=== PATIENT | male | born 1985 | race Two or more races ===

== ENCOUNTER 2018-01-04 09:03 | Emergency (ER) | payer OTHER ==
[2018-01-04 09:16] VITALS: BP 133/72; PULSE 82; TEMP 99.1; BMI 29.4
--- NOTE | 2018-01-04 09:35 | PDOC ---
History of Present Illness - General Chief Complaint: Pain Stated Complaint: WORK RELATED INJURY, RT LEG Time Seen by Provider: 01/04/18 09:25 History Source: Patient Exam Limitations: No Limitations - History of Present Illness Initial Comments: CHIEF COMPLAINT: 32 y/o afebrile male wit no significant PMH c/o right knee pain x 5 days. HISTORY OF PRESENT ILLNESS: The patient states he hit his knee at work 3 times 5 days ago and has had pain and swelling ever since. He states it hurts to go down stairs and when he sits down. He denies buckling, weakness, numbness/ tingling, redness/warmth. He has been icing it and taking advil. Vital signs on arrival are within normal limits. REVIEW OF SYSTEMS: GENERAL/CONSTITUTIONAL: No fever/chills. No weakness. No weight change. MUSCULOSKELETAL: +right knee pain and swelling. No neck or back pain. SKIN: No rash or easy bruising. NEUROLOGIC: No headache, vertigo, loss of consciousness, or loss of sensation. PHYSICAL EXAM: VITAL_SIGNS: within normal limits GENERAL_APPEARANCE: alert, cooperative, no obvious discomfort. Patient is ambulatory with limp MENTAL_STATUS: speech clear, oriented X 3, responds appropriately to questions. NEURO: motor intact and sensory intact in injured extremity. EXTREMITIES: TTP along medial joint line of right knee. Minimal swelling to right knee. No erythema or warmth. No tibial plateau TTP. Full flexion and extension of right knee. SKIN: warm, dry, good color. Past History - Past Medical History Allergies/Adverse Reactions: Allergies Allergy/AdvReac Type Severity Reaction Status Date / Time No Known Allergies Allergy Verified 01/04/18 09:10 Home Medications: Ambulatory Orders NK [No Known Home Medication] 01/04/18 COPD: No Other medical history: DENIES - Suicide/Smoking/Psychosocial Hx Smoking History: Never smoked *Physical Exam - Vital Signs Last Vital Signs Temp Pulse Resp BP Pulse Ox 99.1 F 82 18 133/72 99 01/04/18 09:10 01/04/18 09:10 01/04/18 09:10 01/04/18 09:10 01/04/18 09:10 Medical Decision Making - Medical Decision Making A/P: 32 y/o male with right knee pain. Plan is as follows: 1. Right knee xray Right knee xray IMPRESSION: (wet read). No acute pathology Gave patient xray results. Wrapped affected knee in MINDA bandage. Provided ortho follow up, work note and RICE instructions. The patient verbalizes understanding of all instructions, has no further questions and is awaiting discharge. *DC/Admit/Observation/Transfer Diagnosis at time of Disposition: Knee pain, right Qualifiers: Chronicity: acute Qualified Code(s): M25.561 - Pain in right knee - Discharge Dispostion Disposition: HOME Condition at time of disposition: Good - Referrals Referrals: Kilo Oneill MD [Primary Care Provider] - Edd Jeter MD [Staff Physician] - Call tomorrow - Patient Instructions Printed Discharge Instructions: How To Perform RICE (Rest, Ice, Compress, Elevate), DI for Knee Pain Additional Instructions: Discharge Instructions: -Your xray was normal -Please use MINDA bandage for comfort -Follow RICE instructions -Continue to take Advil for pain/swelling -Follow up with Dr. Jeter within 2 weeks - Post Discharge Activity Forms/Work/School Notes: Back to Work
== END 2018-01-04 10:58 | disposition home or self-care (01) ==
LOC: JERFT 09:03
DX: M25.561 Pain in right knee (principal)
CPT/HCPCS: 73560-TC-RT-FY; 99281-25

== ENCOUNTER 2019-03-25 21:22 | Emergency (ER) | payer OTHER ==
[2019-03-25 21:36] VITALS: BP 112/52; PULSE 87; TEMP 98.4; BMI 29.7
[2019-03-25] MEDS ORDERED: DIPHTH,PERTUSS(ACELL),TET 0.5 ML DISP.SYRIN IM ONE ×2 (21:36→22:07)
--- NOTE | 2019-03-25 21:36 | PDOC ---
Rapid Medical Evaluation Chief Complaint: Eye Problem Time Seen by Provider: 03/25/19 21:34 Medical Evaluation: Allergies Allergy/AdvReac Type Severity Reaction Status Date / Time No Known Allergies Allergy Verified 01/04/18 09:10 03/25/19 21:34 I have performed a brief in-person evaluation of this patient. The patient presents with a chief complaint of: "I have a piece of metal in my R eye". Pt was grinding a piece of metal, was wearing his goggles but thinks something flew into his eye. Last tetanus unknown Pertinent physical exam findings: R eye conjunctival erythema I have ordered the following: boostrix The patient will proceed to the ED for further evaluation. Discharge Disposition - Diagnosis Eye foreign body - Referrals - Patient Instructions - Post Discharge Activity
--- NOTE | 2019-03-25 21:56 | PDOC ---
History of Present Illness - General Chief Complaint: Eye Problem Stated Complaint: INJURY Time Seen by Provider: 03/25/19 21:34 History Source: Patient - History of Present Illness Timing/Duration: other (tonight) Past History - Past Medical History Allergies/Adverse Reactions: Allergies Allergy/AdvReac Type Severity Reaction Status Date / Time No Known Allergies Allergy Verified 03/25/19 21:36 Home Medications: Ambulatory Orders Ciprofloxacin 0.3% Eye Drops [Ciloxan 0.3% Eye Drops --] 1 drop OD ASDIR #1 bottle 03/25/19 Ibuprofen [Motrin -] 600 mg PO QID #28 tablet 03/25/19 COPD: No - Psycho Social/Smoking Cessation Hx Smoking History: Never smoked Review of Systems - Review of Systems HEENTM: Yes: Eye Pain. No: Blurred Vision, Tearing *Physical Exam - Vital Signs Last Vital Signs Temp Pulse Resp BP Pulse Ox 98.4 F 87 18 112/52 L 99 03/25/19 21:33 03/25/19 21:33 03/25/19 21:33 03/25/19 21:33 03/25/19 21:33 - Physical Exam General Appearance: Yes: Appropriately Dressed, Mild Distress HEENT: positive: Normal Voice, Other (mild R conjunctival injection w/ ~2mm black fb visualized grossly near corneal limbus, no additional fb on lid eversion, no tearing, no uptake on braun lamp) Neck: positive: Supple Respiratory/Chest: negative: Respiratory Distress Integumentary: positive: Dry, Warm Neurologic: positive: Fully Oriented, Alert, Normal Mood/Affect Medical Decision Making - Medical Decision Making 03/25/19 21:51 33-year-old male, no significant history, here with foreign body to R eye. States while grinding a piece of metal at home tonight, felt foreign body enter R eye despite wearing goggles per pt. + photophobia, no tearing, discharge or visual changes see exam Gross fb near corneal limbus of R eye No uptake on braun lamp -pain control -optho c/s pending 03/25/19 22:[address] Cool of ophthalmology who states that patient can be seen in the office tomorrow to remove FB. recommending antibiotic drops until then Discharge - Discharge Information Problems reviewed: Yes Clinical Impression/Diagnosis: Eye foreign body Qualifiers: Encounter type: initial encounter Laterality: right Qualified Code(s): T15.91XA - Foreign body on external eye, part unspecified, right eye, initial encounter Condition: Good Disposition: HOME - Additional Discharge Information Prescriptions: Ciprofloxacin 0.3% Eye Drops [Ciloxan 0.3% Eye Drops --] 1 drop OD ASDIR #1 bottle Ibuprofen [Motrin -] 600 mg PO QID #28 tablet - Follow up/Referral Referrals: Kilo Oneill MD [Primary Care Provider] - - Patient Discharge Instructions Patient Printed Discharge Instructions: DI for Foreign Body in the Eye Additional Instructions: Please call eye clinic tomorrow at [phone] and let them know that you were seen in the ED and that ED staff contacted Dr. Cool who says that they want to see you in the office tomorrow to remove your foreign body. Apply antibiotic ointment as prescribed and take Motrin as needed for pain until foreign body can be removed - Post Discharge Activity Work/Back to School Note: Back to Work
== END 2019-03-25 22:50 | disposition home or self-care (01) ==
LOC: JERFT 21:22
PROC: 3E0234Z Introduction of Serum, Toxoid and Vaccine into Muscle, Percutaneous Approach (ICD-10-PCS; principal; 2019-03-25)
DX: T15.91XA Foreign body on external eye, part unspecified, right eye, initial encounter (principal); X58.XXXA Exposure to other specified factors, initial encounter; Y93.89 Activity, other specified; Y92.89 Other specified places as the place of occurrence of the external cause
CPT/HCPCS: 90715; 99281-25

== ENCOUNTER 2019-11-30 08:26 | Emergency (ER) | payer OTHER ==
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
[2019-11-30 08:53] VITALS: BP 127/79; PULSE 75; BMI 28.5
[2019-11-30] MEDS ORDERED: IBUPROFEN 400 MG TABLET (FP) PO ONE ×2 (09:04→09:07)
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
[2019-11-30 09:15] VITALS: TEMP 98.1
== END 2019-11-30 10:11 | disposition home or self-care (01) ==
LOC: JERFT 08:26 → JER 08:26 → JERFT 10:11
DX: S99.922A Unspecified injury of left foot, initial encounter (principal); W23.0XXA Caught, crushed, jammed, or pinched between moving objects, initial encounter
CPT/HCPCS: 73630-TC-LT; 99283-25

== ENCOUNTER 2023-08-13 10:11 | Emergency (ER) | payer OTHER ==
[2023-08-13 10:19] VITALS: BP 114/65; PULSE 65; RESP 20; TEMP 97.5; BMI 28.8
[2023-08-13] MEDS ORDERED: methylPREDNISolone NA SUCC 40 MG/1 ML VIAL ONE (10:46)
[2023-08-13] MEDS ORDERED: FAMOTIDINE 20 MG/50 ML IVPB 20 MG/50 ML MG IVPB ONE (10:46)
[2023-08-13] MEDS: FAMOTIDINE 20 MG/50 ML IVPB 20 MG/50 ML MG IVPB ONE (11:06)
[2023-08-13] MEDS: SODIUM CHLORIDE 0.9% 500 ML INFUS.BAG IV STA (11:06)
[2023-08-13] MEDS: methylPREDNISolone NA SUCC 40 MG/1 ML VIAL IVPUSH ONE (11:06)
== END 2023-08-13 13:02 | disposition home or self-care (01) ==
LOC: JER 10:11
PROC: 3E033GC Introduction of Other Therapeutic Substance into Peripheral Vein, Percutaneous Approach (ICD-10-PCS; principal; 2023-08-13)
PROC: 3E033GC Introduction of Other Therapeutic Substance into Peripheral Vein, Percutaneous Approach (ICD-10-PCS; 2023-08-13)
DX: T78.40XA Allergy, unspecified, initial encounter (principal); R22.0 Localized swelling, mass and lump, head
CPT/HCPCS: 99284-25